=== PATIENT | female | born 1995 | race Caucasian/White ===

== ENCOUNTER → 2018-11-10 | Outpatient (CLI) | payer OTHER ==
--- NOTE | 2018-11-10 16:25 | RAD ---
EXAM DESCRIPTION: Foot,Left 3 Views CLINICAL HISTORY: 23 years, Female, PAIN IN LEFT FOOT COMPARISON: None TECHNIQUE: AP, lateral, and oblique views of the left foot FINDINGS/IMPRESSION: Images of the left foot demonstrate no displaced fracture or dislocation. No focal bony erosion or aggressive periosteal reaction is seen. No significant degenerative change. Small plantar calcaneal spur. No radiopaque foreign body. Moderate soft tissue swelling surrounding the forefoot. Electronically signed by: Dwayne Julian DO 11/10/2018 4:24 PM CDT
== END ==
LOC: RAD 10:51
PROVIDERS: ATTEND Orthopaedic Surgery
DX: M79.672 Pain in left foot (principal); M79.89 Other specified soft tissue disorders